=== PATIENT | male | born 1985 | race Caucasian/White ===

== ENCOUNTER 2017-04-22 09:05 | Emergency (ER) | payer SELFPAY ==
[~2017-04-22] VITALS: Ht 180.3 cm; Wt 65.0 kg
[2017-04-22 09:16] VITALS: BP 126/71; PULSE 106; RESP 15; TEMP 98.4; O2SAT 100
--- NOTE | 2017-04-22 09:38 | PD ---
HPI Chief Complaint: Cold / Flu Symptoms Time Seen by Provider: 09:23 Travel History International Travel<30 days: Yes Contact w/Intl Traveler<30days: Yes Name of Country Traveled to: [place] Traveled to known affect area: No History of Present Illness HPI 31-year-old male presents to emergency room for evaluation of cold and flu symptoms for the past 2.5 days. Patient states he felt feverish yesterday but did not actually take his temperature. Symptoms include nonproductive cough, congestion, body aches, and fatigue. States he just got back from a trip to [place]. Denies chest pain or shortness of breath. He took 1000 g of Tylenol yesterday for body aches and fevers and it did not help. No chronic medical conditions or daily medications. Allergies-Medications (Allergen,Severity, Reaction): Coded Allergies: No Known Allergies (Unverified , 04/22/17) Reported Meds & Prescriptions Reported Meds & Active Scripts Active No Active Prescriptions or Reported Medications Review of Systems Except as stated in HPI: all other systems reviewed are Neg Physical Exam Narrative GENERAL: Well-nourished, well-developed male in no acute distress. Afebrile. Ambulatory. SKIN: Focused skin assessment warm/dry. HEAD: Normocephalic. EYES: No scleral icterus. No injection or drainage. ENT: Mucosa pink and moist. No erythema or exudates. No uvular edema. No uvular , palatal, or tonsillar deviation. Airway patent. Nasal turbinates appear normal without nasal blood, purulent drainage or septal hematoma. NECK: Supple, trachea midline. No JVD or lymphadenopathy. CARDIOVASCULAR: Regular rate and rhythm without murmurs, gallops, or rubs. RESPIRATORY: Breath sounds equal bilaterally. No accessory muscle use. No crackles, rales, wheezes, or rhonchi. Data Data Last Documented VS Vital Signs Date Time Temp Pulse Resp B/P (MAP) Pulse Ox O2 Delivery O2 Flow Rate FiO2 04/22/17 09:16 98.4 106 15 126/71 (89) 100 MDM Medical Screen Exam Complete: Yes Emergency Medical Condition: No Differential Diagnosis flu Narrative Course 31-year-old male presents to the emergency room for evaluation of flulike symptoms for the past 2.5 days. Patient is afebrile and well-appearing in the emergency room. Vital signs stable. He does not sound tachycardic on exam. Lung sounds clear and equal bilaterally. No significant erythema of the pharynx. History and physical exam are consistent with influenza. Patient is outside the window to be treated with Tamiflu. There are no urgent or emergent medical conditions at this time. A medical screening exam was performed: At the time of evaluation the presenting medical condition was determined not to be of an emergent nature. The patient was given the option of receiving additional care, but declined. Patient was given options for additional community resources from which to obtain care. The Patient Has Been advised to seek medical attention for their presenting complaint. The patient has been advised to return to the ER at any time if an emergent condition develops. Primary Impression: Encounter for medical screening examination Scripts No Active Prescriptions or Reported Meds Disposition: 01 DISCHARGE HOME Condition: Stable Nati Negro Apr 22, 2017 09:38
== END 2017-04-22 09:33 | disposition left against medical advice (07) ==
LOC: NEPK 09:05
DX: R50.9 Fever, unspecified (principal); R05 Cough; R09.81 Nasal congestion; R52 Pain, unspecified; R53.83 Other fatigue
CPT/HCPCS: 99281

== ENCOUNTER 2017-04-29 00:02 | Observation (INO) | payer SELFPAY ==
[~2017-04-29] VITALS: Ht 177.8 cm; Wt 65.0 kg
[2017-04-29] VITALS (7 sets, daily range): BP systolic 128–172; BP diastolic 75–86; PULSE 78–114; RESP 15–18; TEMP 98.2–98.5; O2SAT 98–100
--- NOTE | 2017-04-29 07:28 | PD ---
HPI Chief Complaint: Syncope/Near-Syncope Time Seen by Provider: 07:23 Travel History International Travel<30 days: Yes ([place]) Contact w/Intl Traveler<30days: [place] Country Traveled to: [place] Traveled to known affect area: No History of Present Illness HPI 31-year-old male with history of no significant past medical issues, presents to the ER today because he states that he had 2 syncopal episodes last night, states that each time he became dizzy and fell, and noticed that he has had a right lower quadrant abdominal pain over the last day. He states it is currently a 7 out of 10. He denies any chest pains, shortness of breath, nausea , vomiting, or other symptoms. He states that the second time when he had a syncopal episode, he did hit his head. He denies any previous issues with syncope. Modifying Factors: None Associated Signs & Symptoms: Syncopal episodes 2, right lower quadrant abdominal pain Risk Factors: None PFSH Past Medical History Medical History: Denies Significant Hx Diminished Hearing: No Tetanus Vaccination: Unknown Influenza Vaccination: Yes Past Surgical History Other Surgery: Yes (vasectomy ) Social History Alcohol Use: No Tobacco Use: No Substance Use: No Allergies-Medications (Allergen,Severity, Reaction): Coded Allergies: No Known Allergies (Unverified , 04/29/17) Reported Meds & Prescriptions Reported Meds & Active Scripts Active No Active Prescriptions or Reported Medications Review of Systems Except as stated in HPI: all other systems reviewed are Neg Physical Exam Narrative GENERAL: Well-developed young male patient currently in mild distress. Awake and oriented 3. SKIN: Focused skin assessment warm/dry. HEAD: Atraumatic. Normocephalic. EYES: Pupils equal and round. No scleral icterus. No injection or drainage. ENT: No nasal bleeding or discharge. Mucous membranes pink and moist. NECK: Trachea midline. No JVD. Supple. CARDIOVASCULAR: Regular rate and rhythm. No murmur appreciated. RESPIRATORY: No accessory muscle use. Clear to auscultation. Breath sounds equal bilaterally. GASTROINTESTINAL: Abdomen soft, right lower quadrant tenderness without guarding or rebound, nondistended. Hepatic and splenic margins not palpable. MUSCULOSKELETAL: No obvious deformities. No clubbing. No cyanosis. No edema. NEUROLOGICAL: Awake and alert. No obvious cranial nerve deficits. Motor grossly within normal limits. Normal speech. PSYCHIATRIC: Appropriate mood and affect; insight and judgment normal. Data Data Last Documented VS Vital Signs Date Time Temp Pulse Resp B/P (MAP) Pulse Ox O2 Delivery O2 Flow Rate FiO2 04/29/17 00:40 98.2 114 16 172/81 (111) 100 Orders Orders Electrocardiogram (04/29/17 07:23) Complete Blood Count With Diff (04/29/17 07:23) Comprehensive Metabolic Panel (04/29/17 07:23) Troponin I (04/29/17 07:23) Urinalysis - C+S If Indicated (04/29/17 07:23) Chest, Single Ap (04/29/17 07:23) Ct Brain W/O Iv Contrast(Rout) (04/29/17 07:23) Ecg Monitoring (04/29/17 07:23) Iv Access Insert/Monitor (04/29/17 07:23) Oximetry (04/29/17 07:23) Sodium Chloride 0.9% Flush (Ns Flush) (04/29/17 07:30) Morphine Inj (Morphine Inj) (04/29/17 07:30) Ondansetron Inj (Zofran Inj) (04/29/17 07:30) Ct Abd/Pel W Iv Contrast(Rout) (04/29/17 ) Iohexol 350 Inj (Omnipaque 350 Inj) (04/29/17 08:56) Admit Order (Ed Use Only) (04/29/17 10:18) Labs Laboratory Tests Test 04/29/17 07:34 04/29/17 08:20 White Blood Count 9.3 TH/MM3 Red Blood Count 5.29 MIL/MM3 Hemoglobin 15.8 GM/DL Hematocrit 45.3 % Mean Corpuscular Volume 85.6 FL Mean Corpuscular Hemoglobin 29.9 PG Mean Corpuscular Hemoglobin Concent 35.0 % Red Cell Distribution Width 12.6 % Platelet Count 273 TH/MM3 Mean Platelet Volume 8.8 FL Neutrophils (%) (Auto) 64.7 % Lymphocytes (%) (Auto) 26.4 % Monocytes (%) (Auto) 7.3 % Eosinophils (%) (Auto) 1.1 % Basophils (%) (Auto) 0.5 % Neutrophils # (Auto) 6.0 TH/MM3 Lymphocytes # (Auto) 2.5 TH/MM3 Monocytes # (Auto) 0.7 TH/MM3 Eosinophils # (Auto) 0.1 TH/MM3 Basophils # (Auto) 0.0 TH/MM3 CBC Comment DIFF FINAL Differential Comment Blood Urea Nitrogen 11 MG/DL Creatinine 0.96 MG/DL Random Glucose 94 MG/DL Total Protein 8.1 GM/DL Albumin 4.2 GM/DL Calcium Level 9.0 MG/DL Alkaline Phosphatase 44 U/L Aspartate Amino Transf (AST/SGOT) 23 U/L Alanine Aminotransferase (ALT/SGPT) 33 U/L Total Bilirubin 0.2 MG/DL Sodium Level 138 MEQ/L Potassium Level 3.8 MEQ/L Chloride Level 104 MEQ/L Carbon Dioxide Level 29.0 MEQ/L Anion Gap 5 MEQ/L Estimat Glomerular Filtration Rate 91 ML/MIN Troponin I LESS THAN 0.02 NG/ML Urine Color YELLOW Urine Turbidity CLEAR Urine pH 6.0 Urine Specific [place] 1.015 Urine Protein NEG mg/dL Urine Glucose (UA) NEG mg/dL Urine Ketones NEG mg/dL Urine Occult Blood NEG Urine Nitrite NEG Urine Bilirubin NEG Urine Urobilinogen LESS THAN 2.0 MG/DL Urine Leukocyte Esterase NEG Urine RBC LESS THAN 1 /hpf Urine WBC 1 /hpf Urine Mucus FEW /lpf Microscopic Urinalysis Comment CULT NOT INDICATED MDM Medical Decision Making Medical Screen Exam Complete: Yes Emergency Medical Condition: Yes Medical Record Reviewed: Yes Interpretation(s) EKG shows NSR, no ST elevation or depression, and no arrhythmias. No significant T-wave inversions. Laboratory Tests Test 04/29/17 07:34 04/29/17 08:20 Alkaline Phosphatase 44 U/L (45-117) Troponin I LESS THAN 0.02 NG/ML Urine Mucus FEW /lpf (OCC) Last [address] 04/29/17722 Signed Impressions: Service Date/Time: Saturday, April 29, 2017 08:42 - CONCLUSION: Normal examination for a patient of this age. Pj Crocker MD Chest X-Ray 04/29/17722 Signed Impressions: Service Date/Time: Saturday, April 29, 2017 08:01 - CONCLUSION: 1. No acute cardiopulmonary disease. Soto Santos MD Abdomen/Pelvis CT 04/29/17 0000 Signed Impressions: Service Date/Time: Saturday, April 29, 2017 08:46 - CONCLUSION: Unremarkable CT scan of the abdomen and pelvis. No focal or acute pathology. Pj Crocker MD Differential Diagnosis Syncope, right lower quadrant abdominal pains: Appendicitis versus renal colic versus dehydration versus dysrhythmias versus vasovagal Narrative Course EKG did not show significant dysrhythmias. Lab work was fairly unremarkable for significant metabolic issues or dehydration. His chest x-ray was unremarkable and the CAT scan did not show any signs of acute intracranial processes or acute intra-abdominal processes. He is quite tender in the right lower quadrant of uncertain etiology, it could be possibly secondary to abdominal wall contusion when he went down. At this point, my plan would be to admit him as an observation for further evaluation of syncope. Case is discussed with family practice resident service for admission. Diagnosis Primary Impression: Right lower quadrant abdominal pain Additional Impression: Syncope Admitting Information Admitting Physician Requests: Admit Scripts No Active Prescriptions or Reported Meds Susan Boone MD Apr 29, 2017 07:28
[2017-04-29] MEDS ORDERED: SODIUM CHLORIDE 0.9% FLUSH 10 ML FLUSH IVF PRN (07:30)
[2017-04-29] MEDS ORDERED: MORPHINE SULFATE 2 MG/ML INJ IV PUSH ONE (07:30)
[2017-04-29] MEDS ORDERED: ONDANSETRON HCL 4 MG/2 ML VIAL IV PUSH ONE (07:30)
[2017-04-29 08:09] LABS: BASOPHIL % 0.5 % (0.0-2.0); EOSINOPHIL # 0.1 TH/MM3 (0-0.4); EOSINOPHIL % 1.1 % (0.0-4.0); HEMATOCRIT 45.3 % (39.0-51.0); HEMOGLOBIN 15.8 GM/DL (13.0-17.0); LYMPH % 26.4 % (9.0-44.0); LYMPHOCYTE # 2.5 TH/MM3 (1.0-4.8); MEAN CELL VOLUME 85.6 FL (80.0-100.0); MEAN CORPUSCULAR HEMOGLOBIN 29.9 PG (27.0-34.0); MEAN PLATELET VOLUME 8.8 FL (7.0-11.0); MONO % 7.3 % (0.0-8.0); MONOCYTE # 0.7 TH/MM3 (0-0.9); NEUT % 64.7 % (16.0-70.0); PLATELET COUNT 273 TH/MM3 (150-450); RED BLOOD COUNT 5.29 MIL/MM3 (4.50-5.90); RED CELL DISTRIBUTION WIDTH 12.6 % (11.6-17.2); WHITE BLOOD COUNT 9.3 TH/MM3 (4.0-11.0)
--- NOTE | 2017-04-29 08:11 | RADRPT ---
EXAM DATE/TIME: 04/29/2017 08:01 [facility] COMPARISON: No previous studies available for comparison. INDICATIONS : Palpitations. Patient states that he passed out twice. He has right lower quadrant abdomen pain. Leonarda ent has weakness. MEDICAL HISTORY : Patient states he had the flu 2 weeks ago. SURGICAL HISTORY : None. ENCOUNTER: Initial ACUITY: 2 days PAIN SCORE: 0/10 LOCATION: Bilateral chest FINDINGS: A single view of the chest demonstrates the lungs to be symmetrically aerated without evidence of mas s, infiltrate or effusion. The cardiomediastinal contours are unremarkable. Osseous structures are intact. CONCLUSION: 1. No acute cardiopulmonary disease. Soto Santos MD on April 29, 2017 at 8:09 Board Certified Radiologist. This report was verified electronically.
[2017-04-29 08:21] LABS: ALBUMIN 4.2 GM/DL (3.4-5.0); ALT (GPT) 33 U/L (12-78); AST (GOT) 23 U/L (15-37); BLOOD UREA NITROGEN 11 MG/DL (7-18); CHLORIDE 104 MEQ/L (98-107); CREATININE 0.96 MG/DL (0.60-1.30); GLOMERULAR FILTRATION RATE 91 ML/MIN (>89); GLUCOSE,RANDOM 94 MG/DL (74-106); SODIUM (NA) 138 MEQ/L (136-145)
[2017-04-29 08:24] LABS: ALKALINE PHOSPHATASE 44 U/L (45-117); TOTAL BILIRUBIN ADULT 0.2 MG/DL (0.2-1.0); TOTAL PROTEIN 8.1 GM/DL (6.4-8.2); TROPONIN I LESS THAN 0.02 NG/ML (0.02-0.05)
[2017-04-29 08:41] LABS: BILIRUBIN, URINE NEG (NEG); BLOOD, URINE NEG (NEG); GLUCOSE,URINE NEG (NEG); KETONE, URINE NEG (NEG); MUCUS URINE FEW /lpf (OCC); NITRITE,URINE NEG (NEG); URINE COLOR YELLOW (YELLW/STRAW); URINE LEUKOCYTE ESTERASE NEG (NEG)
[2017-04-29] MEDS ORDERED: IOHEXOL 350 MG/ML 10 ML VIAL (for RAD DIAG) IVCONTRAST ONE (08:56)
--- NOTE | 2017-04-29 09:08 | RADRPT ---
EXAM DATE/TIME: 04/29/2017 08:42 [facility] COMPARISON: No previous studies available for comparison. INDICATIONS : Dizziness x 2 days. RADIATION DOSE: 47.39 CTDIvol (mGy) MEDICAL HISTORY : None SURGICAL HISTORY : None. ENCOUNTER: Initial ACUITY: 1 day PAIN SCALE: 0/10 LOCATION: cranial TECHNIQUE: Multiple contiguous axial images were obtained of the head. Using automated exposure control and adj ustment of the mA and/or kV according to patient size, radiation dose was kept as low as reasonably a chievable to obtain optimal diagnostic quality images. DICOM format image data is available electro nically for review and comparison. FINDINGS: CEREBRUM: The ventricles are normal for age. No evidence of midline shift, mass lesion, hemorrhage or acute in farction. No extra-axial fluid collections are seen. POSTERIOR FOSSA: The cerebellum and brainstem are intact. The 4th ventricle is midline. The cerebellopontine angle i s unremarkable. EXTRACRANIAL: The visualized portion of the orbits is intact. SKULL: The calvaria is intact. No evidence of skull fracture. CONCLUSION: Normal examination for a patient of this age. Pj Crocker MD on April 29, 2017 at 9:06 Board Certified Radiologist. This report was verified electronically.
--- NOTE | 2017-04-29 09:12 | RADRPT ---
EXAM DATE/TIME: 04/29/2017 08:46 [facility] COMPARISON: No previous studies available for comparison. INDICATIONS : Right lower quadrant pain. IV CONTRAST: 85 cc Omnipaque 350 (iohexol) IV ORAL CONTRAST: No oral contrast ingested. RADIATION DOSE: 4.60 CTDIvol (mGy) MEDICAL HISTORY : None SURGICAL HISTORY : None. ENCOUNTER: Initial ACUITY: 1 day PAIN SCALE: 7/10 LOCATION: Right lower quadrant TECHNIQUE: Volumetric scanning of the abdomen and pelvis was performed. Using automated exposure control and ad justment of the mA and/or kV according to patient size, radiation dose was kept as low as reasonably achievable to obtain optimal diagnostic quality images. DICOM format image data is available electro nically for review and comparison. FINDINGS: LOWER LUNGS: The visualized lower lungs are clear. LIVER: Homogeneous density without lesion. There is no dilation of the biliary tree. No calcified gallston es. SPLEEN: Normal size without lesion. PANCREAS: Within normal limits. KIDNEYS: Normal in size and shape. There is no mass, stone or hydronephrosis. ADRENAL GLANDS: Within normal limits. VASCULAR: There is no aortic aneurysm. BOWEL/MESENTERY: The stomach, small bowel, and colon demonstrate no acute abnormality. There is no free intraperitone al air or fluid. There is no evidence of inflammatory changes. There is stool throughout the colon. ABDOMINAL WALL: Within normal limits. RETROPERITONEUM: There is no lymphadenopathy. BLADDER: No wall thickening or mass. REPRODUCTIVE: Within normal limits. INGUINAL: There is no lymphadenopathy or hernia. MUSCULOSKELETAL: Within normal limits for patient age. CONCLUSION: Unremarkable CT scan of the abdomen and pelvis. No focal or acute pathology. Pj Crocker MD on April 29, 2017 at 9:07 Board Certified Radiologist. This report was verified electronically.
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
[2017-04-29] MEDS ORDERED: ONDANSETRON HCL 4 MG/2 ML VIAL IVP PRN (11:15)
[2017-04-29] MEDS ORDERED: BISACODYL 10 MG SUPP RECTAL PRN (11:15)
[2017-04-29] MEDS ORDERED: NALOXONE HCL 0.4 MG/ML AMP IV PUSH PRN (11:15)
[2017-04-29] MEDS ORDERED: LACTULOSE SYRUP 20 GM/30 ML CUP PO PRN (11:15)
[2017-04-29] MEDS ORDERED: SODIUM CHLORIDE 0.9% FLUSH 10 ML FLUSH IV FLUSH PRN (11:15)
[2017-04-29] MEDS ORDERED: MAGNESIUM HYDROXIDE SUSP 30 ML CUP PO PRN (11:15)
[2017-04-29] MEDS ORDERED: SENNOSIDES 8.6 MG TAB PO PRN (11:15)
[2017-04-29] MEDS ORDERED: ACETAMINOPHEN 325 MG TAB PO PRN (11:15)
--- NOTE | 2017-04-29 15:02 | PD.CONS ---
cc: Zen Belle MD HPI Service Surgical consultation note Dr Zen Belle MD general Surgery Consult Requested By Dr. Sandoval Reason for Consult RLQ pain with outpouching; syncopal episode x 2 Primary Care Physician No Primary Care Physician History of Present Illness This is a 31 year old male with no past medical history who works here at [facility]. Of note, the patient did just recently travel to [place] and when he arrived back in [place], he had flu like symptoms including a productive cough. Yesterday he had a forceful coughing episode and immediately after that, he noticed a fairly large bulge in his RLQ that was tender. He denies any nausea or vomiting. He denies any fever or chills. He had one syncopal episode at home while getting ready for work and another one after arriving to work. He has not had anything to eat or drink today. A CT abdomen/pelvis was obtained which has no acute findings. His laboratory work in unremarkable. A General Surgery consultation has been requested. Review of Systems Constitutional: COMPLAINS OF: Fatigue, DENIES: Change in appetite Endocrine: DENIES: Polydipsia, Polyuria, Polyphagia Eyes: DENIES: Diplopia, Eye inflammation Ears, nose, mouth, throat: DENIES: Hearing loss, Vertigo Respiratory: DENIES: Cough Cardiovascular: DENIES: Chest pain Gastrointestinal: COMPLAINS OF: Abdominal pain (RLQ ), DENIES: Nausea, Vomiting Genitourinary: DENIES: Hematuria Musculoskeletal: DENIES: Joint pain Integumentary: DENIES: Abnormal pigmentation Hematologic/lymphatic: DENIES: Bruising Immunologic/allergic: DENIES: Eczema Neurologic: DENIES: Abnormal gait, Headache Psychiatric: DENIES: Confusion, Mood changes, Depression Past Family Social History Past Medical History None Past Surgical History Vasectomy Reported Medications None Allergies: Coded Allergies: No Known Allergies (Unverified , 04/29/17) Active Ordered Medications Current Medications Medications (Trade) Dose Ordered Sig/Jackelyn Route Start Time Stop Time Status Last Admin Sodium Chloride 1,000 ml @ 100 mls/hr Q10H IV 04/29/17 12:00 (NS Flush) 2 ml UNSCH PRN IV FLUSH 04/29/17 11:15 (NS Flush) 2 ml BID IV FLUSH 04/29/17 21:00 (Tylenol) 650 mg Q4H PRN PO 04/29/17 11:15 (Zofran Inj) 4 mg Q6H PRN IVP 04/29/17 11:15 (Narcan Inj) 0.4 mg UNSCH PRN IV PUSH 04/29/17 11:15 (Fiordaliza-Colace) 1 tab BID PO 04/29/17 21:00 (Milk Of Magnesia Liq) 30 ml Q12H PRN PO 04/29/17 11:15 (Senokot) 17.2 mg Q12H PRN PO 04/29/17 11:15 (Dulcolax Supp) 10 mg DAILY PRN RECTAL 04/29/17 11:15 (Lactulose Liq) 30 ml DAILY PRN PO 04/29/17 11:15 Family History Non contributory Social History Denies tobacco use Denies ETOH use Denies illicit drug use Works at [employer]. Physical Exam Vital Signs Vital Signs Date Time Temp Pulse Resp B/P (MAP) Pulse Ox O2 Delivery O2 Flow Rate FiO2 04/29/17 11:20 99 Room Air 04/29/17 11:20 98 15 137/80 (99) 100 Room Air 04/29/17 00:40 98.2 114 16 172/81 (111) 100 Physical Exam GENERAL: Pleasant 31 year old male resting in bed in no acute distress. SKIN: Warm and dry. HEAD: Atraumatic. Normocephalic. EYES: Pupils equal and round. No scleral icterus. No injection or drainage. ENT: No nasal bleeding or discharge. Mucous membranes pink and moist. NECK: Trachea midline. CARDIOVASCULAR: Regular rate and rhythm. RESPIRATORY: No accessory muscle use. Clear to auscultation. Breath sounds equal bilaterally. GASTROINTESTINAL: Abdomen soft, flat; non distended. RLQ tenderness with just minimal palpation. No visible scars or hernias. MUSCULOSKELETAL: Extremities without clubbing, cyanosis, or edema. No obvious deformities. NEUROLOGICAL: Awake and alert. No obvious cranial nerve deficits. Motor grossly within normal limits. Five out of 5 muscle strength in the arms and legs. Normal speech. PSYCHIATRIC: Appropriate mood and affect; insight and judgment normal. Laboratory Laboratory Tests Test 04/29/17 07:34 04/29/17 08:20 White Blood Count 9.3 Red Blood Count 5.29 Hemoglobin 15.8 Hematocrit 45.3 Mean Corpuscular Volume 85.6 Mean Corpuscular Hemoglobin 29.9 Mean Corpuscular Hemoglobin Concent 35.0 Red Cell Distribution Width 12.6 Platelet Count 273 Mean Platelet Volume 8.8 Neutrophils (%) (Auto) 64.7 Lymphocytes (%) (Auto) 26.4 Monocytes (%) (Auto) 7.3 Eosinophils (%) (Auto) 1.1 Basophils (%) (Auto) 0.5 Neutrophils # (Auto) 6.0 Lymphocytes # (Auto) 2.5 Monocytes # (Auto) 0.7 Eosinophils # (Auto) 0.1 Basophils # (Auto) 0.0 CBC Comment DIFF FINAL Differential Comment Blood Urea Nitrogen 11 Creatinine 0.96 Random Glucose 94 Total Protein 8.1 Albumin 4.2 Calcium Level 9.0 Alkaline Phosphatase 44 Aspartate Amino Transf (AST/SGOT) 23 Alanine Aminotransferase (ALT/SGPT) 33 Total Bilirubin 0.2 Sodium Level 138 Potassium Level 3.8 Chloride Level 104 Carbon Dioxide Level 29.0 Anion Gap 5 Estimat Glomerular Filtration Rate 91 Troponin I LESS THAN 0.02 Urine Color YELLOW Urine Turbidity CLEAR Urine pH 6.0 Urine Specific [place] 1.015 Urine Protein NEG Urine Glucose (UA) NEG Urine Ketones NEG Urine Occult Blood NEG Urine Nitrite NEG Urine Bilirubin NEG Urine Urobilinogen LESS THAN 2.0 Urine Leukocyte Esterase NEG Urine RBC LESS THAN 1 Urine WBC 1 Urine Mucus FEW Microscopic Urinalysis Comment CULT NOT INDICATED Result Diagram: 04/29/17 0704/29/17733 Imaging Last [address] 04/29/17722 Signed Impressions: Service Date/Time: Saturday, April 29, 2017 08:42 - CONCLUSION: Normal examination for a patient of this age. Pj Crocker MD Chest X-Ray 04/29/17722 Signed Impressions: Service Date/Time: Saturday, April 29, 2017 08:01 - CONCLUSION: 1. No acute cardiopulmonary disease. Soto Santos MD Abdomen/Pelvis CT 04/29/17 0000 Signed Impressions: Service Date/Time: Saturday, April 29, 2017 08:46 - CONCLUSION: Unremarkable CT scan of the abdomen and pelvis. No focal or acute pathology. Pj Crocker MD Assessment and Plan Problem List: (1) Abdominal muscle strain ICD Codes: S39.011A - Strain of muscle, fascia and tendon of abdomen, initial encounter (2) Strain of rectus abdominis muscle ICD Codes: S39.011A - Strain of muscle, fascia and tendon of abdomen, initial encounter (3) Right lower quadrant abdominal pain ICD Codes: R10.31 - Right lower quadrant pain Status: Acute (4) Syncope ICD Codes: R55 - Syncope and collapse Status: Acute (5) FEN/GI/PPx Status: Acute Assessment and Plan 31 year old male with syncopal episodes x2; RLQ abdominal pain -Possible muscle strain?? -Regular diet -Ice to affected area PRN -Continue workup for syncopal episodes -No surgical intervention planned at this time -Thank you for this consult Discussed Condition With Dr. Barbra Olguin Attending Statement NOTE FOR SURGICAL ATTENDING, DR. ZEN BELLE No inguinal hernias No femoral hernia I believe he has a rectus muscle strain and possibly a inguinal strain I agree with above assessment and plan. The exam, history, and the medical decision-making described in the above note were completed with the assistance of the mid-level provider. I reviewed and agree with the findings presented. I attest that I had a [id number] encounter with the patient on the same day, and personally performed and documented my assessment and findings in the medical record. The following services were provided during this hospital visit: Chart data review, vital sign assessments/reviewing monitor data Review of consultations notes if present. Medication orders/review and/or management Ordering and/or reviewing lab tests Ordering and/or interpreting/reviewing x-rays and/or diagnostic studies Care of the patient and discussion of the patient with the care team Documentation time To help prompt me to consider important information that might be impacting today's encounter and assessment, information from prior notes written by myself or my colleagues may have been "brought forward/copy and pasted" into today's note. Problem Qualifiers (1) Abdominal muscle strain: Qualified Codes: S39.011A - Strain of muscle, fascia and tendon of abdomen, initial encounter (2) Strain of rectus abdominis muscle: Qualified Codes: S39.011A - Strain of muscle, fascia and tendon of abdomen, initial encounter Angelita Blas/First Ekta BREWER Apr 29, 2017 15:02 Zen Belle MD Apr 29, 2017 18:56
[2017-04-29] MEDS ORDERED: ACETAMINOPHEN/HYDROcodone 325 MG/5 MG TAB PO PRN (20:00)
[2017-04-29] MEDS ORDERED: ACETAMINOPHEN/HYDROcodone 325 MG/10 MG TAB PO PRN (20:00)
[2017-04-29] MEDS: SODIUM CHLOR 0.9% 1000 ML INJ 1,000 ML IV SCH ×2 (20:42→21:56)
[2017-04-29] MEDS: SODIUM CHLORIDE 0.9% FLUSH 10 ML FLUSH IV FLUSH SCH (20:43)
[2017-04-29] MEDS: DOCUSATE SODIUM 50 MG/SENNA 8.6 MG TAB PO SCH (20:43)
[2017-04-30] VITALS (8 sets, daily range): BP systolic 114–138; BP diastolic 62–86; PULSE 75–101; RESP 16–20; TEMP 97.7–98.7; O2SAT 94–100
[2017-04-30 06:05] LABS: ALBUMIN 3.4 GM/DL (3.4-5.0); ALKALINE PHOSPHATASE 42 U/L (45-117); ALT (GPT) 27 U/L (12-78); AST (GOT) 15 U/L (15-37); BICARBONATE 29.1 MEQ/L (21.0-32.0); BLOOD UREA NITROGEN 18 MG/DL (7-18); CALCIUM 8.3 MG/DL (8.5-10.1); CHLORIDE 104 MEQ/L (98-107); CREATININE 0.98 MG/DL (0.60-1.30); GLOMERULAR FILTRATION RATE 89 ML/MIN (>89); GLUCOSE,RANDOM 90 MG/DL (74-106); SODIUM (NA) 139 MEQ/L (136-145); TOTAL BILIRUBIN ADULT 0.2 MG/DL (0.2-1.0); TOTAL PROTEIN 6.6 GM/DL (6.4-8.2)
[2017-04-30] MEDS: SODIUM CHLOR 0.9% 1000 ML INJ 1,000 ML IV SCH (06:22)
--- NOTE | 2017-04-30 06:52 | EKG ---
Date Performed: 04/29/2017 Time Performed: 08:20:43 PTAGE: 31 years EKG: Sinus rhythm WITH SHORT MD INTERVAL POSSIBLE RIGHT VENTRICULAR CONDUCTION DELAY EARLY REPOLARIZATION BORDERLINE E CG NO PREVIOUS TRACING DOCTOR: Chapincito Freeman Interpretating Date/Time 04/30/2017 06:51:09
[2017-04-30] MEDS: SODIUM CHLORIDE 0.9% FLUSH 10 ML FLUSH IV FLUSH SCH (09:10)
[2017-04-30] MEDS: DOCUSATE SODIUM 50 MG/SENNA 8.6 MG TAB PO SCH (09:10)
--- NOTE | 2017-04-30 11:47 | HHI.DCPOC ---
Discharge Care Plan Diagnosis: (1) Syncope (2) Abdominal muscle strain Goals to Promote Your Health * To prevent worsening of your condition and complications * To maintain your health at the optimal level Directions to Meet Your Goals Take your medications as prescribed Follow your dietary instruction Follow activity as directed Keep your appointments as scheduled Take your immunizations and boosters as scheduled If your symptoms worsen call your PCP, if no PCP go to Urgent Care Center or Emergency Room Smoking is Dangerous to Your Health. Avoid second hand smoke Call the 24-hour hour crisis hotline for domestic abuse at Killian Madden MD, R3 Apr 30, 2017 11:47
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
--- NOTE | 2017-04-30 13:31 | ECHRPT ---
Indication: SYNCOPE CONCLUSIONS The left ventricular systolic function is hyperdynamic with an estimated ejection fraction in the ra nge of 65- 70%. Left ventricular diastolic function parameters are normal. There is trace tricuspid valve regurgitation. BP: 137 / 80 HR: 98 Rhythm: Sinus MEASUREMENTS (Male / Female) Normal Values Technical Quality:Fair 2D ECHO LV Diastolic Diameter PLAX 4.6 cm 4.2 - 5.9 / 3.9 - 5.3 cm LV Systolic Diameter PLAX 3.3 cm IVS Diastolic Thickness 0.6 cm 0.6 - 1.0 / 0.6 - 0.9 cm LVPW Diastolic Thickness 0.6 cm 0.6 - 1.0 / 0.6 - 0.9 cm LV Relative Wall Thickness 0.3 RV Internal Dim ED PLAX 1.3 cm LVOT Diameter 1.7 cm Aortic Root Diameter 2.4 cm LA Systolic Diameter LX 2.5 cm 3.0 - 4.0 / 2.7 - 3.8 cm M-MODE AV Cusp Separation MM 2.2 cm DOPPLER AV Peak Velocity 117.0 cm/s AV Peak Gradient 5.5 mmHg AV Mean Gradient 3.0 mmHg AV Velocity Time Integral 18.8 cm LVOT Peak Velocity 104.0 cm/s LVOT Peak Gradient 4.3 mmHg LVOT Velocity Time Integral 18.8 cm AV Area Cont Eq vti 2.3 cm AV Area Cont Eq pk 2.0 cm Mitral E Point Velocity 80.9 cm/s Mitral A Point Velocity 66.1 cm/s Mitral E to A Ratio 1.2 LV E' Lateral Velocity 12.1 cm/s Mitral E to LV E' Lateral Ratio 6.7 LV E' Septal Velocity 9.7 cm/s Mitral E to LV E' Septal Ratio 8.4 PV Peak Velocity 88.7 cm/s PV Peak Gradient 3.1 mmHg FINDINGS LEFT VENTRICLE Normal left ventricular size. Wall thickness is normal. The left ventricular systolic function is hyperdynamic with an estimated ejection fraction in the ra nge of 65- 70%. No regional wall motion abnormalities are present. Left ventricular diastolic function parameters are normal. RIGHT VENTRICLE Normal right ventricular size and systolic function. LEFT ATRIUM The left atrial size is normal. RIGHT ATRIUM The right atrial size is normal. ATRIAL SEPTUM No atrial level shunt is demonstrated by color flow Doppler interrogation. AORTA The aortic root and proximal ascending aorta are not well visualized. MITRAL VALVE Structurally normal mitral valve. No mitral valve stenosis or regurgitation. AORTIC VALVE Trileaflet aortic valve. No aortic valve stenosis or regurgitation. TRICUSPID VALVE Structurally normal tricuspid valve. There is trace tricuspid valve regurgitation. No tricuspid valve stenosis. PULMONARY VALVE No pulmonary valve regurgitation or stenosis. PERICARDIUM No pericardial effusion. Emery Stafford DO (Electronically Signed) Final Date:30 April 2017 13:30
--- NOTE | 2017-04-30 14:14 | EKG ---
Date Performed: 04/29/2017 Time Performed: 16:49:09 PTAGE: 31 years EKG: Sinus rhythm POSSIBLE RIGHT VENTRICULAR CONDUCTION DELAY PREVIOUS TRACING : 04/29/2017 08.20 DOCTOR: Jacoby Langston Interpretating Date/Time 04/30/2017 14:12:52
== END 2017-04-30 17:13 | disposition home or self-care (01) ==
LOC: NEPC 00:02 → NEDA 10:19 → NEPGCP 16:25
PROVIDERS: ADMIT Family Medicine; ATTEND Family Medicine
DX: R55 Syncope and collapse (principal); S39.011A Strain of muscle, fascia and tendon of abdomen, initial encounter; R10.31 Right lower quadrant pain; R11.0 Nausea; R42 Dizziness and giddiness; R61 Generalized hyperhidrosis; R53.1 Weakness; I44.0 Atrioventricular block, first degree; R05 Cough; M79.1 Myalgia; M25.50 Pain in unspecified joint; R51 Headache; R20.2 Paresthesia of skin; L98.9 Disorder of the skin and subcutaneous tissue, unspecified; Z87.891 Personal history of nicotine dependence; X58.XXXA Exposure to other specified factors, initial encounter
CPT/HCPCS: 70450; 71045; 74177; 80053; 81001; 84484; 85025; 93005; 93306; 96361; 96374; 96375; 97162; 99285; G0378; G8987; G8988; J2270; J2405; J7030; Q9967

== ENCOUNTER → 2017-05-29 | Day surgery (SDC) | payer OTHER ==
[~2017-05-29] VITALS: Ht 177.8 cm; Wt 63.3 kg
[~2017-05-29] MED LIST: *MEPERIDINE 25 MG INJ VIAL PERIprocedural Use ONLY ONE; ACETAMINOPHEN 1000 MG/100 ML 100 ML IV ONE; ACETAMINOPHEN 1000 MG/100 ML 100 ML IV SCH; ACETAMINOPHEN/HYDROcodone 325 MG/5 MG TAB ONE; ACETAMINOPHEN/HYDROcodone 325 MG/5 MG TAB PO PRN; BUPIVACAINE/EPINEPHRINE 0.25% 50 ML VIAL ONE; CEFAZOLIN INJ 2,000 MG in SODIUM CHLORIDE 0.9% INJ 100 ML IV SCH; CHLORHEXIDINE GLUCONATE 2 % 1 PACK (2 CLOTHS) TOPICAL PRN; DEXAMETHASONE SOD PHOS 4 MG/ML VIAL IV ONE; DICL75TA PO; DO NOT ADM ANY ANTICOAGULANT DRUGS PRN; FAMOTIDINE 20 MG/2 ML VIAL ONE; GLYCOPYRROLATE 1 MG/5 ML SYRINGE IV PUSH ONE; KETOROLAC TROMETHAMINE 30 MG/ML (IVP) VIAL IV PUSH ONE; LACTATED RINGER'S 1000 ML IV PRN; LIDOCAINE HCL 1% PF 5 ML SYRINGE OTHER ONE; METOPROLOL TARTRATE 25 MG TAB PO PRN; MIDAZOLAM HCL 2 MG/2 ML VIAL ONE; NEOSTIGMINE 5 MG/5 ML SYRINGE IV PUSH ONE; NORC5TAB PO; OMEGCAP PO; POVIDONE IODINE 5% (ANTISEPSIS KIT) 4 APPLICATIONS EACH NARE PRN; PROPOFOL 200 MG/20 ML AMP IV ONE; ROCURONIUM INJ 50 MG/5 ML SYRINGE IV PUSH ONE; SODIUM CHLORID 0.9% 500 ML IV PRN; ePHEDrine/NS 25 MG/5 ML SYRINGE IV ONE
--- NOTE | 2017-05-29 15:44 | MP ---
cc: Zen Belle MD DATE OF OPERATION: 05/29/2017 DATE OF : 1985 PREOPERATIVE DIAGNOSIS: Right groin pain, right lower quadrant pain. Questionable inguinal hernia versus chronic appendicitis. POSTOPERATIVE DIAGNOSES 1. Laxity of the canal of the right inguinal region. 2. Normal appendix, normal gallbladder, normal liver. PROCEDURE: Diagnostic laparoscopy to evaluate the appendix and right groin area. I did not see obvious hernia. It appeared possibly a laxity in the floor of the canal. He had somewhat unusual pain and I felt it necessary to explore the groin. For this reason, we proceeded with repair and visualized the laxity more so on the open technique versus laparoscopic, the laxity from the inguinal canal on the right side. PROCEDURE: The patient was taken to the operating room, placed in supine position. After anesthesia, his abdomen was prepped with Hibiclens. Because of his [employer] he was given preoperative antibiotics. A timeout is done. We first make an incision at the umbilicus. Veress needle was inserted. Under direct vision, a 5 mm trocar was introduced, camera was introduced. A 5 mm port was then placed about 8 cm below the umbilicus. The gallbladder was normal. Liver was normal. The cecum was normal. The appendix was completely normal. I do not see any obvious indirect hernia on the right side or a femoral hernia or on the left side. He has a slight indentation on the right side, but nothing I am convinced is pathologic. For this reason, we remove the CO2. We then make a right lower quadrant incision to further explore the groin because of his discomfort he was experiencing. Dissected down through Kirt's fascia, identifying the external oblique aponeurosis which is incised. Cord structures are surrounded with a [place] drain and it is noted that he does have a slight laxity of the floor of the canal. He does not have an indirect hernia, does not have a significant cord lipoma. For this reason and the amount of discomfort he was having, I suspect he has strained this area, may have what it called a sports hernia where his pain is located. With this in mind, we then take a piece of polypropylene, secure it to the pubic tubercle, Virgil's ligament, and the iliopubic tract laterally. Of note, we noted that he does not have a femoral hernia as well. The medial aspect of the mesh was again secured to the conjoined tendon with 0 Ethibond. Because the ilioinguinal nerve would be laying right on top of the mesh because of his very thin body habitus, I elected to sacrifice this nerve all the way up to the internal oblique aponeurosis. We then secure the tails of the mesh to themselves and the internal oblique aponeurosis. With this done, we then close the external oblique aponeurosis with a 2-0 Vicryl, Kirt's with a 2-0 Vicryl and skin with 4-0 Monocryl. Steri-Strips are applied, sterile bandage applied. The patient tolerated the procedure well, had no immediate postop complications. Zen Belle MD JDB/MANUEL , 03:20 PM , 03:43 PM
[2017-05-29 16:55] VITALS: BP 144/85; PULSE 90; RESP 16; TEMP 97.5; O2SAT 98
== END | disposition home or self-care (01) ==
LOC: HSDC 11:21
PROVIDERS: ATTEND Surgery
DX: K45.8 Other specified abdominal hernia without obstruction or gangrene (principal); M24.20 Disorder of ligament, unspecified site
CPT/HCPCS: 00840; 49320; 49505; C1781; J0131; J0690; J1100; J1885; J2175; J2250; J2710; J3010; J7120; 92950